=== PATIENT | male | born 1970 | race Caucasian/White ===

== ENCOUNTER 2019-11-22 23:21 | Emergency (ER) | payer MEDICAID ==
[~2019-11-22] VITALS: Ht 175.3 cm; Wt 83.9 kg
[~2019-11-22 23:21] MED LIST: BUPROPION HCL100 M1 PO; DIAZEPAM2 MG PO; DILAUDID2 MG PO; DILAUDID4 MG PO; DSS100 MG PO; DULCOLAX10 MG PR; LIORESAL20 MG PO; MIRTAZAPINE30 M1 PO; NEURONTIN600 MG PO; NEURONTIN800 MG PO; NORCO 10-325 T1 EACH PO; VALIUM10 MG PO; VALIUM5 MG PO; VIBRAMYCIN100 MG PO; VICODIN ES 7.51 EACH PO
[2019-11-22 23:30] VITALS: BP 211/112
--- NOTE | 2019-11-22 23:38 | NUR ---
ED Nurse Note: Pt was on wheel chair and came into the ED c/o change condom cath to fopley cath and Rx for pain meds. Pt is AO x 4, VVS and on wheel chair.
--- NOTE | 2019-11-22 23:42 | Emergency Room Report ---
History of Present Illness General Chief Complaint: General Complaint Source: Patient Present Illness HPI Is a 49-year-old male who has history of chronic pain. He presents with chief complaint of wanting an indwelling catheter placed. He has a condom catheter in right now. He claimed that he was at [facility] was just discharged 2 days ago. He was there because he had neck pain and had neck surgery done. He complained of pain. He said he did not get prescription for Dilaudid or Valium. He claimed that they discharged him without prescribing his pain medication. Patient complained of generalized pain in the lower extremity. He said he has a condom catheter in but wants an indwelling Arias. Pain is 10 out of 10. No trauma. No fever chills but nothing made it better. Nothing made it worse. Allergies: Coded Allergies: HALOPERIDOL (Verified Allergy, Unknown, 11/22/19) KETOROLAC (Verified Allergy, Unknown, 11/22/19) COVID-19 Screening Contact w/high risk pt: No Recent Travel to affected area: No Experienced COVID-19 symptoms?: No COVID-19 Testing performed AGRICULTURAL COMMODITIES INSPECTOR: No Patient History Past Medical History: see triage record, old chart reviewed, HTN Past Surgical History: other Pertinent Family History: none Social History: Denies: smoking Immunizations: other Reviewed Nursing Documentation: PMH: Agreed; PSxH: Agreed Nursing Documentation-PMH Past Medical History: No History, Except For Hx Hypertension: Yes History Of Psychiatric Problem: Yes - Depression Review of Systems Eye: Denies: eye pain, blurred vision ENT: Denies: ear pain, nose congestion, throat swelling Respiratory: Denies: cough, shortness of breath Cardiovascular: Denies: chest pain, palpitations Gastrointestinal: Denies: abdominal pain, diarrhea, nausea, vomiting Musculoskeletal: Denies: back pain, joint pain Skin: Denies: rash Neurological: Denies: headache, numbness Endocrine: Denies: increased thirst, increased urine Hematologic/Lymphatic: Denies: easy bruising All Other Systems: negative except mentioned in HPI Physical Exam Vital Signs Date Time Temp Pulse Resp B/P (MAP) Pulse Ox O2 Delivery O2 Flow Rate FiO2 11/22/19 23:26 98.6 127 18 211/112 (145) 99 Room Air Vitals with high blood pressure Sp02 EP Interpretation: reviewed, normal General Appearance: well appearing, no apparent distress, alert Head: normocephalic, atraumatic Eyes: bilateral eye PERRL, bilateral eye EOMI ENT: hearing grossly normal, normal pharynx Neck: full range of motion, supple, no meningismus Respiratory: chest non-tender, lungs clear, normal breath sounds Cardiovascular #1: regular rate, rhythm, no murmur Gastrointestinal: normal bowel sounds, non tender, no mass, no organomegaly, no bruit, non-distended Musculoskeletal: back normal, normal range of motion, other - Patient is in a wheelchair Psychiatric: mood/affect normal Medical Decision Making Diagnostic Impression: Primary Impression: Chronic pain Qualified Codes: G89.4 - Chronic pain syndrome Additional Impressions: Encounter for Arias catheter replacement Hypertension Qualified Codes: I10 - Essential (primary) hypertension Drug-seeking behavior ER Course Patient here wanting a Arias catheter placed. He has a condom catheter in. If unable to place a Arias, will place a condom catheter instead. He had [employer]- new hospital socks. He said he just left [facility] 2 days ago. I see no new surgical scar in his neck. I doubt that he had any recent surgery in the last few months. He is also taking blood pressure medication but does not know the name of his medication. On the [employer] system he has several narcotics prescription for Valium, Dilaudid and Suboxone. I see no need for emergent refill on his medication. Will discharge home. Last Vital Signs Date Time Temp Pulse Resp B/P (MAP) Pulse Ox O2 Delivery O2 Flow Rate FiO2 11/22/19 23:26 98.6 127 18 211/112 (145) 99 Room Air Status: improved Disposition: HOME, SELF-CARE Condition: Stable Scripts Amlodipine Besylate (Norvasc) 10 Mg Tablet 10 MG ORAL DAILY, #30 TAB Prov: Yo No MD 11/22/19 Additional Instructions: Follow-up with your pain specialist as scheduled. Do not go to different hospital for pain medication. Take your blood pressure medication. Return if symptoms worsen. Yo No MD November 22, 2019 23:42
[2019-11-22] MEDS ORDERED: NORVASC10 MG ORAL (23:45)
[2019-11-22 23:54] VITALS: BP 211/112
--- NOTE | 2019-11-23 00:05 | NUR ---
ER DISCHARGE NOTE: Patient is cleared to be discharged per ERMD, pt is aox4, on room air, with stable vital signs. pt was given dc and prescription instructions, pt was able to verbalize understanding, pt id band and removed without complications. pt is on wheel chair and took all belongings.
== END 2019-11-23 00:05 | disposition home or self-care (01) ==
LOC: MERGE 23:45 → EMR 23:45
DX: G89.4 Chronic pain syndrome (principal); I10 Essential (primary) hypertension; Z76.5 Malingerer [conscious simulation]; F32.9 Major depressive disorder, single episode, unspecified; Z46.6 Encounter for fitting and adjustment of urinary device; Z88.8 Allergy status to other drugs, medicaments and biological substances
CPT/HCPCS: 80307; Z7502; 99283

== ENCOUNTER 2019-11-23 05:43 | Emergency (ER) | payer MEDICAID ==
[~2019-11-23] VITALS: Ht 182.9 cm; Wt 95.3 kg
[~2019-11-23 05:43] MED LIST changes: +NORVASC10 MG ORAL
[2019-11-23 05:45] VITALS: BP 150/75
--- NOTE | 2019-11-23 05:45 | NUR ---
ED Nurse Note: Patient brought into ED by [id number] from the [facility] c/o stiffness. patient was just recently discharged from here a couple hours ago. again stating that he would like some valium. patient is alert and oriented x4. will wait for further orders
--- NOTE | 2019-11-23 05:47 | Emergency Room Report ---
History of Present Illness General Source: Patient, EMS Present Illness HPI This is a 49-year-old male who was here earlier with chief complaint of body stiffness and pain. He wanted 4 mg Dilaudid IV and also Valium. He was just discharged from [facility] and has a bag full of pain medication. I discharged the patient without any controlled substance. He went to the nearby gas station and called 911. He complained of stiffness and body pain. Pain is 10 out of 10. He is requesting Dilaudid and Valium here. He denies suicidal thoughts homicidal thought. Pain is 10 out of 10. No fever chills no nausea no vomiting. Nothing made it better. Nothing made it worse. Allergies: Coded Allergies: HALOPERIDOL (Verified Allergy, Unknown, 11/22/19) KETOROLAC (Verified Allergy, Unknown, 11/22/19) COVID-19 Screening Contact w/high risk pt: No Recent Travel to affected area: No Experienced COVID-19 symptoms?: No COVID-19 Testing performed RESEARCH CLERK: No COVID-19 Screening: Negative COVID-19 Patient History Past Medical History: see triage record, old chart reviewed Past Surgical History: other Pertinent Family History: none Social History: Denies: smoking Immunizations: other Reviewed Nursing Documentation: PMH: Agreed; PSxH: Agreed Nursing Documentation-PMH Hx Hypertension: Yes Review of Systems Eye: Denies: eye pain, blurred vision ENT: Denies: ear pain, nose congestion, throat swelling Respiratory: Denies: cough, shortness of breath Cardiovascular: Denies: chest pain, palpitations Gastrointestinal: Denies: abdominal pain, diarrhea, nausea, vomiting Musculoskeletal: Reports: back pain, muscle pain, muscle stiffness; Denies: joint pain Skin: Denies: rash Neurological: Denies: headache, numbness Endocrine: Denies: increased thirst, increased urine Hematologic/Lymphatic: Denies: easy bruising All Other Systems: negative except mentioned in HPI Physical Exam Sp02 EP Interpretation: reviewed, normal General Appearance: well appearing, no apparent distress, alert Head: normocephalic, atraumatic Eyes: bilateral eye PERRL, bilateral eye EOMI ENT: hearing grossly normal, normal pharynx Neck: full range of motion, supple, no meningismus Respiratory: chest non-tender, lungs clear, normal breath sounds Cardiovascular #1: regular rate, rhythm, no murmur Gastrointestinal: normal bowel sounds, non tender, no mass, no organomegaly, no bruit, non-distended Musculoskeletal: back normal, other - Pt is in wheelchair Psychiatric: mood/affect normal Medical Decision Making Diagnostic Impression: Primary Impression: Drug-seeking behavior Additional Impression: Chronic pain Qualified Codes: G89.4 - Chronic pain syndrome Status: unchanged Disposition: HOME, SELF-CARE Condition: Stable Additional Instructions: Follow-up with your doctor in 7 days. Do not go to different hospital for pain medication and Valium. Return if symptoms worsen. Yo No MD November 23, 2019 05:47
--- NOTE | 2019-11-23 05:50 | NUR ---
ER DISCHARGE NOTE: Patient is cleared to be discharged per ERMD, pt is aox4, on room air, with stable vital signs. pt was given dc instructions. patient acknowledged DC instructions. patient wheeled out from the ED via own wheelchair. patient has taken all belongings and refused to sign DC paperwork.
== END 2019-11-23 05:50 | disposition home or self-care (01) ==
LOC: EDBD 05:43 → EMR 05:50 → MERGE 05:50
DX: G89.4 Chronic pain syndrome (principal); Z76.5 Malingerer [conscious simulation]; Z88.8 Allergy status to other drugs, medicaments and biological substances; I10 Essential (primary) hypertension
CPT/HCPCS: 99283

== ENCOUNTER → 2020-08-17 | Emergency (ER) | payer MEDICAID ==
[~2020-08-17] VITALS: Ht 175.3 cm; Wt 90.7 kg
--- NOTE | 2020-08-17 23:20 | NUR ---
ED Nurse Note: patient brought in from assisted living facility, hx of paraplegia has complaints abdominal and body pain
[2020-08-17 23:40] VITALS: BP 146/80
--- NOTE | 2020-08-17 23:40 | NUR ---
ED Nurse Note: patient refused blood work and refuses to cooperate to recieve care, patient is degrading and insulting, refuses to allow staff to assist and help him safely.
--- NOTE | 2020-08-17 23:42 | Emergency Room Report ---
History of Present Illness General Chief Complaint: Abdominal Pain Source: Patient, Medical Record, EMS Present Illness HPI This is a 50-year-old male who was homeless but currently residing in [facility]. He was just discharged from [facility] for diagnosis of osteomyelitis sepsis. He is a paraplegic and has chronic sacral ulcer mellitus. He also has history of polysubstance abuse and chronic pain. He presents with chief complaint of abdominal pain and wanting pain medication. I have seen him last year for similar complaint. Then he wanted 4 mg Dilaudid and also Valium. According to nursing staff at the correction, he mending pain medication. Patient said that they did not give him his enema. He denies any fever chills chest pain is 10 out of 10. Denies any nausea vomiting. This is a chronic issue for him. At [facility] he was treated with doxycycline and Levaquin. Plastic surgeon and neurosurgeon were consulted for debridement but patient refused. The note also said that infectious disease was also consulted and state that the patient would likely have lifelong chronic osteomyelitis as long as the sacral bone is exposed. He has been to see them several times already. He refused initially placement to a correction and was discharged to the street. Recently sent back to the correction few days ago. Allergies: Coded Allergies: HALOPERIDOL (Verified Allergy, Severe, 04/26/12) "puts me into coma" HALOPERIDOL LACTATE (Verified Allergy, Severe, 04/26/12) "puts me into coma" KETOROLAC TROMETHAMINE (Verified Allergy, Severe, Anaphylaxis, 04/26/12) OLANZAPINE (Verified Allergy, Intermediate, Hallucinations, 04/26/12) "jump through window" RISPERIDONE (Verified Allergy, Intermediate, 04/26/12) "anxiety" KETOROLAC (Verified Allergy, Unknown, 11/26/19) COVID-19 Screening Contact w/high risk pt: Yes Experienced COVID-19 symptoms?: No COVID-19 Testing performed BRAND ATTENDANT: No Patient History Past Medical History: see triage record, old chart reviewed Past Surgical History: other Pertinent Family History: none Social History: Denies: smoking Immunizations: other Reviewed Nursing Documentation: PMH: Agreed; PSxH: Agreed Nursing Documentation-PMH Past Medical History: No History, Except For Hx Hypertension: Yes Hx Pacemaker: No Hx Asthma: Yes Hx COPD: No Hx Diabetes: No Hx Cancer: No Hx Gastrointestinal Problems: No Hx Dialysis: No History Of Psychiatric Problem: Yes - substance abuse, depression, Hx Neurological Problems: Yes - paraplegic, chronic indwelling chen Hx Cerebrovascular Accident: No Hx Seizures: Yes Hx Paralysis: Yes Hx Spinal Cord Injury: Yes Review of Systems Eye: Denies: eye pain, blurred vision ENT: Denies: ear pain, nose congestion, throat swelling Respiratory: Denies: cough, shortness of breath Cardiovascular: Denies: chest pain, palpitations Gastrointestinal: Denies: abdominal pain, diarrhea, nausea, vomiting Musculoskeletal: Reports: back pain, joint pain Skin: Denies: rash Neurological: Denies: headache, numbness Endocrine: Denies: increased thirst, increased urine Hematologic/Lymphatic: Denies: easy bruising All Other Systems: negative except mentioned in HPI Physical Exam Vital Signs Date Time Temp Pulse Resp B/P (MAP) Pulse Ox O2 Delivery O2 Flow Rate FiO2 08/17/20 23:08 98.8 84 18 146/80 (102) 99 Room Air Vitals unremarkable Sp02 EP Interpretation: reviewed, normal General Appearance: well appearing, no apparent distress, alert Head: normocephalic, atraumatic Eyes: bilateral eye PERRL, bilateral eye EOMI ENT: hearing grossly normal, normal pharynx Neck: full range of motion, supple, no meningismus Respiratory: chest non-tender, lungs clear, normal breath sounds Cardiovascular #1: regular rate, rhythm, no murmur Gastrointestinal: normal bowel sounds, non tender, no mass, no organomegaly, no bruit, non-distended Rectal: other - Sacral decubitus Genitourinary: other - Chronic Chen Musculoskeletal: other - Patient has ulceration to his lower extremities and feet. Psychiatric: other - Angry and demanding Lymphatic: normal inspection Medical Decision Making Diagnostic Impression: Primary Impression: Chronic osteomyelitis Additional Impressions: Chronic pain Qualified Codes: G89.4 - Chronic pain syndrome Drug-seeking behavior ER Course Patient here for pain complaint. He refuses blood work, CT scan or dressings to his wound. He just wanted high-dose Dilaudid. Explained to the patient that I am not comfortable giving chest high dose narcotics. Patient said he has been getting narcotic at the correction but we spoke with the nursing staff there that he has pain medications ordered regularly. Patient is competent to leave AGAINST MEDICAL ADVICE here. We will send him back to the correction. He said he is going get his wheelchair and clothing and leave from there. Last Vital Signs Date Time Temp Pulse Resp B/P (MAP) Pulse Ox O2 Delivery O2 Flow Rate FiO2 08/17/20 23:08 98.8 84 18 146/80 (102) 99 Room Air Status: unchanged Disposition: SNF Condition: Stable Additional Instructions: Follow-up with your doctor as scheduled. Take your medication as scheduled. You may benefit from seeing a pain specialist. Return if symptoms worsen. Yo No MD Aug 17, 2020 23:42
--- NOTE | 2020-08-18 00:44 | NUR ---
ED Nurse Note: patient started saying discrimantory terms while arguing with doctor patient expressed "I don't want black people taking care of me, im not racist," Patient is beligerent and rude to staff members that try to assist him.
--- NOTE | 2020-08-18 00:50 | NUR ---
ED Nurse Note: Spoke with charge nurse from [facility], informed pt will be sent back per EDMD.
--- NOTE | 2020-08-18 01:14 | NUR ---
ED Nurse Note: patient refused to sign discharge papers, continue to yell racist comments to staff "The black man is trying to take [facility] [facility],"
--- NOTE | 2020-08-18 02:00 | NUR ---
ED Nurse Note: Spoke to Lou cavanaugh and gave an update on pts decision to sign AMA and refusal to go back
--- NOTE | 2020-08-18 02:20 | NUR ---
ED Nurse Note: Patient refused to get into [facility] ambulance gurney to get back into the facility. Explained to the patient the need to be transferred back to the facility he came from. Patient refused help/ resources offered as he wants to be on the street. Patient was requesting narcotics prescription before going. Pt was given wheelchair upon discharge but refused to sign AMA. Na cavanaugh notified of pts AMA
== END ==
LOC: EDUNIT# 23:06 → EDBD 23:07 → EMR 23:20
DX: M86.68 Other chronic osteomyelitis, other site (principal); G89.4 Chronic pain syndrome; Z76.5 Malingerer [conscious simulation]; Z88.8 Allergy status to other drugs, medicaments and biological substances; I10 Essential (primary) hypertension; F32.9 Major depressive disorder, single episode, unspecified; G82.20 Paraplegia, unspecified; G40.909 Epilepsy, unspecified, not intractable, without status epilepticus
CPT/HCPCS: 99283